=== PATIENT | male | born 1995 | race Asian ===

== ENCOUNTER 2024-05-30 17:54 | Inpatient (IN) | payer OTHER ==
[2024-05-30] MEDS: SODIUM CHLORIDE 0.9% 500 ML INFUS.BAG IV ONE (18:40)
[2024-05-30] MEDS: ACETAMINOPHEN 1000 MG/100 ML BAG IVPB ONE (18:41)
[2024-05-30 18:48] LABS: HEMATOCRIT 44.4 % (35.4-49); MCH 28.9 pg (25.7-33.7); MCHC 31.6 g/dl (32.0-35.9); MEAN CELL VOLUME 91.3 fl (80-96); MEAN PLT VOLUME 8.2 fl (7.5-11.1); PLATELET COUNT 227.1 10^3/uL (134-434); RBC 4.86 10^6/uL (4.00-5.60); WHITE BLOOD COUNT 10.4 10^3/uL (4.0-10.8)
[2024-05-30 19:10] LABS: PLATELET ESTIMATE ADEQUATE
[2024-05-30 19:19] LABS: ALBUMIN 4.7 g/dl (3.4-5.0); ALK PHOS 67 U/L (45-117); ANION GAP 11 mmol/L (4-13); BILIRUBIN,TOTAL 1.4 mg/dl (0.2-1); CALCIUM 9.8 mg/dl (8.5-10.1); CHLORIDE 99 mmol/L (98-107); CO2 26 mmol/L (21-32); CREATININE 0.8 mg/dl (0.6-1.3); GLUCOSE,RANDOM 91 mg/dl (74-106); POTASSIUM 4.2 mmol/L (3.5-5.1); SGOT/AST 29 U/L (15-37); SGPT/ALT 34 U/L (7-52); SODIUM 136 mmol/L (136-145); TOT PROT 6.9 g/dl (6.4-8.2)
[2024-05-30] MEDS ORDERED: PIPERACILLIN/TAZOBACTAM 4.5 GM VIAL IVPB ONE (20:40)
[2024-05-30] MEDS: SODIUM CHLORIDE 1,000 ML IV SCH (20:54)
[2024-05-30] MEDS: PIPERACILLIN/TAZOB 4.5 GM 4.5 GM in DEXTROSE 5%-WATER 100 ML IVPB ONE (20:56)
[2024-05-30] MEDS ORDERED: morphine SULFATE 4 MG/ML VIAL ONE (20:57)
[2024-05-30] MEDS: morphine CARPU-JECT 4 MG/1 ML DISP.SYRIN IVPUSH ONE (21:07)
[2024-05-30] MEDS ORDERED: DOCUSATE SODIUM 100 MG CAPSULE (FP) PO PRN (22:03)
[2024-05-30 22:38] VITALS: BMI 27.0
[2024-05-30 22:52] LABS: INR 0.96 (0.83-1.09); PROTHROMBIN TIME (PATIENT) 11.1 SEC (9.7-13.0)
[2024-05-31] MEDS ORDERED: morphine SULFATE 4 MG/ML VIAL IVPUSH PRN (01:00)
[2024-05-31] MEDS: PIPERACILLIN/TAZOB 3.375 GM 3.375 GM in DEXTROSE 5%-WATER - 50 ML IVPB SCH ×2 (02:44→18:11)
[2024-05-31] MEDS ORDERED: PIPERACILLIN/TAZOB 3.375 GM 3.375 GM in DEXTROSE 5%-WATER - 50 ML IVPB SCH ×2 (03:00→18:00)
[2024-05-31] MEDS: ACETAMINOPHEN 1000 MG/100 ML BAG IVPB PRN (06:48)
[2024-05-31] MEDS ORDERED: IBUPROFEN 600 MG TABLET (FP) PO PRN (08:36)
[2024-05-31 09:04] LABS: CALCIUM 9.2 mg/dl (8.5-10.1); CREATININE 0.8 mg/dl (0.6-1.3); MAGNESIUM 1.8 mg/dL (1.8-2.4); POTASSIUM 3.9 mmol/L (3.5-5.1)
[2024-05-31] MEDS: AMPICILLIN NA/SULBACTAM NA 3 GM in SODIUM CHLORIDE 100 ML IVPB SCH (09:42)
[2024-05-31] MEDS: SODIUM CHLORIDE 1,000 ML IV SCH (09:44)
[2024-05-31 09:51] LABS: BASO % 0.2 % (0-2.0); EOS % 0.5 % (0-4.5); HEMATOCRIT 37.6 % (35.4-49); HEMOGLOBIN 12.5 GM/dL (11.7-16.9); LYMPH % 10.7 % (8-40); MCH 29.9 pg (25.7-33.7); MCHC 33.3 g/dl (32.0-35.9); MEAN CELL VOLUME 89.8 fl (80-96); MEAN PLT VOLUME 8.7 fl (7.5-11.1); MONO % 12.6 % (3.8-10.2); PLATELET COUNT 246 10^3/uL (134-434); RBC 4.18 M/mm3 (4.00-5.60); RDW 13.1 % (11.9-15.9); WHITE BLOOD COUNT 9.4 K/mm3 (4.0-10.0)
[2024-05-31 14:11] LABS: ERYTHROCYTE SEDIMENTATION RATE 22 mm/hr (0-10)
[2024-05-31] MEDS: ACETAMINOPHEN 325 MG TABLET (FP) PO PRN (14:53)
[2024-06-01] MEDS: PIPERACILLIN/TAZOB 3.375 GM 3.375 GM in DEXTROSE 5%-WATER - 50 ML IVPB SCH (01:20)
[2024-06-01] MEDS ORDERED: PIPERACILLIN/TAZOB 3.375 GM 3.375 GM in DEXTROSE 5%-WATER - 50 ML IVPB SCH ×2 (02:00→18:00)
[2024-06-01] MEDS ORDERED: SODIUM CHLORIDE 1,000 ML IV SCH (07:28)
[2024-06-01 08:26] LABS: CALCIUM 9.4 mg/dl (8.5-10.1); CREATININE 0.9 mg/dl (0.6-1.3); PHOSPHOROUS 3.7 (2.5-4.9); POTASSIUM 3.9 mmol/L (3.5-5.1); TOT PROT 6.4 g/dl (6.4-8.2)
[2024-06-01 08:27] LABS: ALBUMIN 4.1 g/dl (3.4-5.0); BILIRUBIN,TOTAL 0.7 mg/dl (0.2-1)
[2024-06-01 09:41] LABS: BASO % 0.5 % (0-2.0); EOS % 1.1 % (0-4.5); LYMPH % 18.7 % (8-40); MCH 29.9 pg (25.7-33.7); MCHC 33.3 g/dl (32.0-35.9); MEAN CELL VOLUME 89.8 fl (80-96); MEAN PLT VOLUME 8.4 fl (7.5-11.1); MONO % 18.5 % (3.8-10.2); NEUT % 61.2 % (42.8-82.8); PLATELET COUNT 266 10^3/uL (134-434); RBC 4.34 M/mm3 (4.00-5.60); RDW 13.1 % (11.9-15.9); WHITE BLOOD COUNT 7.6 K/mm3 (4.0-10.0)
[2024-06-01 11:28] VITALS: RESP 18
[2024-06-02 08:50] LABS: HEMATOCRIT 41.6 % (35.4-49); HEMOGLOBIN 13.1 G/dL (11.7-16.9); MCH 28.4 pg (25.7-33.7); MCHC 31.6 g/dl (32.0-35.9); MEAN PLT VOLUME 8.3 fl (7.5-11.1); PLATELET COUNT 286.3 10^3/uL (134-434); RBC 4.62 10^6/uL (4.00-5.60); RDW 13.7 % (11.9-15.9); WHITE BLOOD COUNT 5.9 10^3/uL (4.0-10.8)
[2024-06-02 09:33] LABS: CALCIUM 9.5 mg/dl (8.5-10.1); CREATININE 0.8 mg/dl (0.6-1.3)
[2024-06-02 10:35] VITALS: BP 136/96; PULSE 78; TEMP 98
== END 2024-06-02 12:12 | disposition home or self-care (01) | DRG 373 ==
LOC: FER 17:54 → FM/S 20:38 → OBSVTOIN 05-31 08:35
PROVIDERS: ADMIT Internal Medicine; ATTEND Internal Medicine
DX: K35.33 Acute appendicitis with perforation, localized peritonitis, and gangrene, with abscess (principal); F90.8 Attention-deficit hyperactivity disorder, other type
CPT/HCPCS: 36415; 74177-TC; 80048; 80053; 81003; 82272; 83690; 83735; 84100; 85025; 85027; 85610; 85651; 86140; 86850; 86900; 86901; 87086; 99285-25; G0378; J0131; Q9967